=== PATIENT | female | born 1935 | race Caucasian/White ===

== ENCOUNTER → 2016-07-18 | Outpatient (REF) | payer MEDICARE, OTHER | LOC: M LAB REF 16:34 | PROVIDERS: ATTEND Nurse Practitioner Family | DX: N76.0 Acute vaginitis (principal) ==

== ENCOUNTER 2017-09-01 21:37 | Emergency (ER) | payer MEDICARE, OTHER ==
[2017-09-01 22:11] LABS: BASO % 0.3 % (0.0-1.0); EOS # 0.1 10^3/uL (0.0-0.50); EOS % 1.7 % (0.0-3.0); HEMATOCRIT 35.5 % (36.0-47.0); HEMOGLOBIN 12.6 g/dl (12.0-16.0); IMMATURE GRANULOCYTE % 0.3 % (0-3.0); LYMPH # 1.7 10^3/uL (1.5-4.5); LYMPH % 24.4 % (24.0-44.0); MEAN CORPUSCULAR HEMOGLOBIN 32.4 pg (27.0-33.0); MEAN CORPUSCULAR HGB CONC 35.5 g/dl (32.0-36.5); MEAN CORPUSCULAR VOLUME 91.3 fl (80.0-96.0); MONO # 0.9 10^3/uL (0.0-0.8); MONO % 12.6 % (0.0-5.0); NEUTROPHILS # 4.3 10^3/uL (1.8-7.7); NEUTROPHILS % 60.7 % (36.0-66.0); PLATELET COUNT, AUTOMATED 190 10^3/uL (150-450); RED BLOOD COUNT 3.89 10^6/uL (4.00-5.40); RED CELL DISTRIBUTION WIDTH 12.5 % (11.5-14.5); WHITE BLOOD COUNT 7.1 10^3/uL (4.0-10.0)
[2017-09-01 22:26] LABS: ANION GAP 8 MEQ/L (8-16); BLOOD UREA NITROGEN 18 MG/DL (7-18); CALCIUM LEVEL 9.2 MG/DL (8.8-10.2); CARBON DIOXIDE LEVEL 28 MEQ/L (21-32); CHLORIDE LEVEL 95 MEQ/L (98-107); CPK CREATINE PHOSPHOKINASE 135 U/L (26-192); CREATININE FOR GFR 0.82 MG/DL (0.55-1.30); GLOMERULAR FILTRATION RATE > 60.0 (>32); GLUCOSE, FASTING 155 MG/DL (70-100); MB/CK RELATIVE INDEX 2.96 (< OR =4); POTASSIUM SERUM 4.9 MEQ/L (3.5-5.1); SODIUM LEVEL 131 MEQ/L (136-145); TROPONIN I < 0.02 NG/ML (< 0.10)
[2017-09-01] MEDS: NS 500 ML IV (22:30)
[2017-09-01 22:40] LABS: ETHYL ALCOHOL (ETHANOL) < 0.003 % (0.000-0.010)
[2017-09-01 22:52] LABS: VALPROIC ACID (DEPAKOTE) 29.5 UG/ML (50.0-100.0)
== END 2017-09-02 00:53 | disposition home or self-care (01) ==
LOC: M ED 09-02 00:53
DX: I95.1 Orthostatic hypotension (principal); J45.909 Unspecified asthma, uncomplicated; E03.9 Hypothyroidism, unspecified; F03.90 Unspecified dementia, unspecified severity, without behavioral disturbance, psychotic disturbance, mood disturbance, and anxiety; Z86.69 Personal history of other diseases of the nervous system and sense organs; Z79.890 Hormone replacement therapy; Z79.51 Long term (current) use of inhaled steroids; Z79.899 Other long term (current) drug therapy; Z88.1 Allergy status to other antibiotic agents; Z88.8 Allergy status to other drugs, medicaments and biological substances
CPT/HCPCS: 93005

== ENCOUNTER → 2018-07-01 | Outpatient (REF) | payer MEDICARE ==
[~2018-07-01] MED LIST: ADV100INH INH; ALBU17IN2 INH; CENTTAB PO; DIVA250T67 PO; MEMA1TAB PO; META58.612 PO; SYNT25TA PO
[2018-07-01 16:02] LABS: RHEUMATOID FACTOR QUANT < 10.0 IU/ML (<15.0); VITAMIN B12 LEVEL > 2000 PG/ML
[2018-07-03 10:17] LABS: ANTINUCLEAR ANTIBODIES DIRECT Negative (Negative)
[2018-07-03 17:10] LABS: FOLATE > 24.0 NG/ML
== END ==
LOC: M LAB REF 15:32
PROVIDERS: ATTEND Family Medicine
DX: F03.90 Unspecified dementia, unspecified severity, without behavioral disturbance, psychotic disturbance, mood disturbance, and anxiety (principal)

== ENCOUNTER → 2018-09-10 | Outpatient (REF) | payer MEDICARE | LOC: M LAB REF 16:55 | PROVIDERS: ATTEND Family Medicine | DX: M31.6 Other giant cell arteritis (principal) ==

== ENCOUNTER → 2020-04-02 | Outpatient (REF) | payer MEDICARE, OTHER ==
[~2020-04-02] MED LIST changes: -ALBU17IN2 INH; -MEMA1TAB PO; +MEMA1TAB3 PO; +PROV108A INH
== END ==
LOC: M LAB REF 14:06
PROVIDERS: ATTEND Dermatology
DX: L90.5 Scar conditions and fibrosis of skin (principal)

== ENCOUNTER → 2021-01-28 | Outpatient (CLI) | payer MEDICARE ==
[~2021-01-28] MED LIST changes: +BARIUM SULFATE 700 MG TABLET (E-Z-DISK) As Ordered ONE; +E-Z-PAQUE 96% w/w SUSP 176GM BTL As Ordered ONE; +VARIBAR NECTAR 40% w/v 240ML SUSP BTL As Ordered ONE; +VARIBAR PUDDING 40% w/v 230ML TUBE As Ordered ONE
--- NOTE | 2021-01-28 16:24 | REP ---
INDICATION: DYSPHAGIA. COMPARISON: NONE TECHNIQUE: The procedure was performed under the direct supervision of . The procedure was performed with Radha Chand from speech pathology present. 1.7 minutes of fluoroscopy time was utilized for this procedure. FINDINGS: The patient was assessed upon entering the room. The patient is in an upright position and conversing appropriately. A video pharyngo esophagram was then performed. Thin consistency: Patient was instructed to take a swallow from a cup. Patient was able to form a bolus by cupping the tongue and initiating deglutition without delay. The patient cleared the bolus immediately with minimal vallecular pooling. Passavant's pad dot and shifted anteriorly normally with no nasopharyngeal aspiration. The patient was then instructed to take consecutive swallows from a cup. With this there is laryngeal penetration. The epiglottis does not appear to fully invert. Pudding consistency: The patient was able to form a bolus by cupping of the tongue and manipulated the bolus well. The patient cleared the bolus immediately. Passavant's pad dot and shifted anteriorly normally with no nasopharyngeal aspiration. Mixed fruit consistency: The patient was able to form a bolus by cupping of the tongue and manipulated the bolus well. The patient clear the bolus immediately. Passavant's pad dot and shifted anteriorly normally with no nasopharyngeal aspiration. Soft consistency: The patient was able to form a bolus by cupping of the tongue and manipulated the bolus well. The patient cleared the bolus immediately. Passavant's pad dot and shifted anteriorly normally with no nasopharyngeal aspiration. Solid consistency: The patient was able to form a bolus by cupping of the tongue and manipulated the bolus well. The patient clear the bolus immediately. Passavant's pad dot and shifted anteriorly normally with no nasopharyngeal aspiration. The patient was then given a barium pill with tap water. The patient placed the pill in her mouth and swallowed with water. The barium pill passed without delay. A detailed report of this examination will be provided by speech pathology. IMPRESSION: With thin barium, there is laryngeal penetration when the patient was instructed to take in 2nd swallows from cup. The epiglottis does not appear to fully invert. A detailed report of this examination will be provided by speech pathology. <Electronically signed by Otoniel Blanco > 01/28/21 1521 <Electronically signed by Ariel Rojas > 01/28/21 1621
== END ==
LOC: M RAD 11:20
PROVIDERS: ATTEND Family Medicine
DX: R13.10 Dysphagia, unspecified (principal)

== ENCOUNTER → 2021-11-11 | Outpatient (REF) | payer MEDICARE ==
[~2021-11-11] MED LIST changes: -BARIUM SULFATE 700 MG TABLET (E-Z-DISK) As Ordered ONE; -E-Z-PAQUE 96% w/w SUSP 176GM BTL As Ordered ONE; -VARIBAR NECTAR 40% w/v 240ML SUSP BTL As Ordered ONE; -VARIBAR PUDDING 40% w/v 230ML TUBE As Ordered ONE
== END ==
LOC: M LAB REF 15:59
PROVIDERS: ATTEND Family Medicine
DX: N39.0 Urinary tract infection, site not specified (principal)

== ENCOUNTER → 2022-01-31 | Outpatient (REF) | payer MEDICARE | LOC: M LAB REF 16:38 | PROVIDERS: ATTEND Physician Assistant Medical | DX: N39.0 Urinary tract infection, site not specified (principal) ==

== ENCOUNTER → 2022-03-10 | Outpatient (REF) | payer MEDICARE ==
[~2022-03-10] MED LIST changes: +ALBU6.7H6 INH; -PROV108A INH
[2022-03-10 18:41] LABS: RHEUMATOID FACTOR QUANT < 10.0 IU/ML (<15.0); TOTAL PROTEIN 7.7 GM/DL (6.4-8.2)
[2022-03-11 13:44] LABS: VITAMIN B12 LEVEL 1514 PG/ML (247-911)
== END ==
LOC: M LAB REF 17:20
PROVIDERS: ATTEND Family Medicine
DX: G31.84 Mild cognitive impairment of uncertain or unknown etiology (principal)

== ENCOUNTER → 2022-08-31 | Outpatient (REF) | payer MEDICARE ==
[2022-08-31 17:24] LABS: APPEARANCE, URINE HAZY (CLEAR); BACTERIA, URINE AUTO 1+ (NEGATIVE); BILIRUBIN, URINE AUTO NEGATIVE (NEGATIVE); BLOOD, URINE BLOOD NEGATIVE (NEGATIVE); COLOR, URINE YELLOW (YELLOW); GLUCOSE, URINE (UA) AUTO NEGATIVE (NEGATIVE); KETONE, URINE AUTO NEGATIVE (NEGATIVE); LEUKOCYTE ESTERASE, URINE AUTO 3+ (NEGATIVE); NITRITE, URINE AUTO NEGATIVE (NEGATIVE); PROTEIN, URINE AUTO NEGATIVE (NEGATIVE); RBC, URINE AUTO 2 /HPF (0-3); SPECIFIC GRAVITY URINE AUTO 1.013 (1.002-1.035); SQUAMOUS EPITHELIAL CELL UR AU 1 /HPF (0-6); UROBILINOGEN, URINE AUTO 0.2 mg/dL (0.0-2.0); WBC, URINE AUTO 12 /HPF (0-3)
== END ==
LOC: M LAB REF 16:11
PROVIDERS: ATTEND Family Medicine
DX: N39.0 Urinary tract infection, site not specified (principal)